=== PATIENT | male | born 1965 | race Caucasian/White ===

== ENCOUNTER 2016-06-06 07:51 | Emergency (ER) | payer MEDICARE, MEDICAID ==
[2016-06-06] MEDS ORDERED: SODIUM CHLORIDE 0.9% 1,000 ML IV ONE (08:18)
[2016-06-06] MEDS ORDERED: diazePAM INJ 5 MG/ML SYRINGE IVP STA (08:19)
[2016-06-06] MEDS ORDERED: GLUCAGON 1 MG/ML VIAL IVP STA (08:19)
[2016-06-06] MEDS ORDERED: GLUCAGON 1 MG/ML VIAL ONE (08:23)
[2016-06-06] MEDS ORDERED: WATER FOR INJECTION,STERILE 10 ML ONE (08:24)
[2016-06-06] MEDS ORDERED: diazePAM INJ 5 MG/ML SYRINGE ONE (08:25)
[2016-06-06] MEDS ORDERED: FAMOTIDINE 20 MG/50 ML 50 ML IV ONE ×2 (09:27→10:02)
[2016-06-06] MEDS ORDERED: MAG HYDROX/AL HYDROX/SIMETH 30 ML UDC PO STA (09:27)
[2016-06-06] MEDS ORDERED: FAMOTIDINE 20 MG/50 ML 0 ML IV ONE (09:45)
[2016-06-06] MEDS ORDERED: MAG HYDROX/AL HYDROX/SIMETH 30 ML UDC ONE ×2 (09:45→10:01)
== END 2016-06-06 10:22 | disposition home or self-care (01) ==
DX: T18.128A Food in esophagus causing other injury, initial encounter (principal); X58.XXXA Exposure to other specified factors, initial encounter
CPT/HCPCS: 36415; 80053; 83690; 85025; 96374; 96375; 99283; 99284; A9270